=== PATIENT | female | born 1965 | race African-American/Black ===

== ENCOUNTER 2023-12-08 15:23 | Emergency (ER) | payer SELFPAY ==
[2023-12-08 15:45] VITALS: RESP 18; TEMP 98.4; BMI 28.3
[2023-12-08 17:53] LABS: BASO % 0.7 % (0-2.0); HEMATOCRIT 36.5 % (32.4-45.2); HEMOGLOBIN 12.1 GM/dL (10.7-15.3); LYMPH % 18.1 % (8-40); MCH 28.6 pg (25.7-33.7); MCHC 33.3 g/dl (32.0-36.0); MEAN PLT VOLUME 9.9 fl (7.5-11.1); MONO % 4.6 % (3.8-10.2); NEUT % 75.6 % (42.8-82.8); PLATELET COUNT 295 10^3/uL (134-434); RBC 4.24 M/mm3 (3.60-5.2); RDW 13.9 % (11.6-15.6)
[2023-12-08 18:20] LABS: POTASSIUM 4.2 mmol/L (3.5-5.1)
[2023-12-08 18:21] LABS: CALCIUM 9.1 mg/dL (8.5-10.1)
[2023-12-08 18:22] LABS: ALBUMIN 3.1 g/dl (3.4-5.0)
[2023-12-08 18:25] LABS: CREATININE 1.1 mg/dL (0.55-1.3)
[2023-12-08 18:27] LABS: BILIRUBIN,TOTAL 0.4 mg/dL (0.2-1); TOT PROT 7.5 g/dl (6.4-8.2)
[2023-12-08 19:13] LABS: HIV INTERPRETATION NEGATIVE (NEGATIVE)
[2023-12-08 21:06] VITALS: BP 158/70; PULSE 88
== END 2023-12-08 21:06 | disposition short-term general hospital (02) ==
LOC: JER 15:23
DX: H53.131 Sudden visual loss, right eye (principal)
CPT/HCPCS: 36415; 80053; 85025; 85651; 86038; 86140; 86780; 86803; 87389; 99285-25